=== PATIENT | male | born 1985 | race Caucasian/White ===

== ENCOUNTER 2020-01-17 16:00 | Emergency (ER) | payer OTHER ==
[~2020-01-17] VITALS: Ht 185.4 cm; Wt 117.9 kg
[2020-01-17 17:12] VITALS: BP 120/85
== END 2020-01-17 17:12 | disposition home or self-care (01) ==
LOC: M.ERS 16:00
DX: Z03.818 Encounter for observation for suspected exposure to other biological agents ruled out (principal)